=== PATIENT | female | born 1945 | race Caucasian/White ===

== ENCOUNTER 2023-06-21 11:40 | Outpatient (CLI) | payer MEDICARE, SELFPAY ==
[2023-06-21 11:47] VITALS: BMI 23.2
--- NOTE | 2023-06-21 11:50 | PC.NURSE ---
1150-erik morris collected labs via venipuncture stick with butterfly needle in rigth forearm; pt to d/c home.
[2023-06-21 12:40] LABS: Basophils % 0.7 % (0.1-2.0); Eosinophils # 0.2 K/mm3 (0.0-0.4); Eosinophils % 3.8 % (0.1-12.0); Hematocrit 45.1 % (37.0-47.0); Hemoglobin 14.8 g/dL (12.2-16.2); Lymphocytes # 0.9 K/mm3 (0.7-4.5); Lymphocytes % 20.6 % (10-50); Mean Corpuscular HGB Conc 32.7 g/dL (31.8-35.4); Mean Corpuscular Hemoglobin 31.8 pg (27.0-31.2); Mean Corpuscular Volume 97.1 fl (81-99); Mean Platelet Volume 7.2 fl (7.4-10.4); Monocytes # 0.4 K/mm3 (0.1-1.0); Monocytes % 9.1 % (1.7-9.3); Neutrophils # 2.9 K/mm3 (1.8-7.8); Neutrophils % 65.9 % (37.0-80.0); Platelet Count 331 K/mm3 (142-424); Red Blood Count 4.65 M/mm3 (4.20-5.40); Red Cell Distribution Width 14.1 % (11.5-17.5); White Blood Count 4.4 K/mm3 (4.8-10.8)
[2023-06-21 12:42] LABS: Iron 50 ug/dL (37-170)
[2023-06-21 12:51] LABS: Total Iron Binding Capacity 224 ug/dL (265-497)
[2023-06-21 13:20] LABS: Ferritin 13.3 ng/ml (11.1-264)
== END 2023-06-21 11:55 | disposition home or self-care (01) ==
LOC: LAB 11:42
PROVIDERS: PCP Internal Medicine; Visit Provider Internal Medicine Medical Oncology
DX: D50.9 Iron deficiency anemia, unspecified (principal); T45.4X5A Adverse effect of iron and its compounds, initial encounter
CPT/HCPCS: 36415; 82728; 83540; 83550; 85025

== ENCOUNTER 2023-09-01 13:16 | Outpatient (CLI) | payer MEDICARE, SELFPAY ==
[2023-09-01] MEDS: ferumoxytoL 510 MG in 0.9 % SODIUM CHLORIDE 50 ML 268 MG IV (13:39)
[2023-09-01] MEDS: SODIUM CHLORIDE 0.9% 50ML BAG 50 ML IV (13:39)
[2023-09-01 13:45] VITALS: BP 143/75; PULSE 69; RESP 17
[2023-09-01 14:00] VITALS: BP 122/72; PULSE 72; RESP 16
== END 2023-09-01 14:20 | disposition home or self-care (01) ==
LOC: INF 13:17
PROVIDERS: Visit Provider Internal Medicine Medical Oncology
DX: D50.9 Iron deficiency anemia, unspecified (principal); T45.4X5A Adverse effect of iron and its compounds, initial encounter; G25.81 Restless legs syndrome
CPT/HCPCS: 96374; Q0138

== ENCOUNTER 2023-09-04 13:17 | Outpatient (CLI) | payer MEDICARE, SELFPAY ==
[2023-09-04 13:20] VITALS: BP 131/71; PULSE 85; RESP 16; TEMP 35.9; O2SAT 96
[2023-09-04] MEDS: ferumoxytoL 510 MG in 0.9 % SODIUM CHLORIDE 50 ML 268 MG IV ×2 (13:37→13:38)
[2023-09-04] MEDS: 0.9 % SODIUM CHLORIDE 50 ML 100 ML IV (13:47)
[2023-09-04] MEDS: SODIUM CHLORIDE 0.9% 10ML FLUSH SYRINGE 10 ML IV (13:48)
[2023-09-04 14:19] VITALS: BP 140/80; PULSE 78; RESP 16; TEMP 36.1; O2SAT 97
== END 2023-09-04 23:59 | disposition home or self-care (01) ==
PROVIDERS: PCP Internal Medicine; Visit Provider Internal Medicine Medical Oncology
DX: D50.8 Other iron deficiency anemias (principal); T45.4X5A Adverse effect of iron and its compounds, initial encounter
CPT/HCPCS: 96374; Q0138